=== PATIENT | male | born 2000 | race Caucasian/White ===

== ENCOUNTER 2024-03-15 17:34 | Emergency (ER) | payer BC ==
[2024-03-15] MEDS ORDERED: Acetaminophen 500 MG TAB ONE (17:48)
== END 2024-03-15 19:05 | disposition home or self-care (01) ==
LOC: ERS 17:34
DX: S70.11XA Contusion of right thigh, initial encounter (principal); S80.01XA Contusion of right knee, initial encounter; S00.81XA Abrasion of other part of head, initial encounter; S70.01XA Contusion of right hip, initial encounter; V29.99XA Rider (driver) (passenger) of other motorcycle injured in unspecified traffic accident, initial encounter
CPT/HCPCS: 70450; 71045; 72192; G0390

== ENCOUNTER 2025-03-24 10:03 | Outpatient (CLI) | payer BC | END 2025-03-24 10:04 | disposition home or self-care (01) | LOC: BICMRI 10:03 | PROVIDERS: ATTEND Student in an Organized Health Care Education/Training Program | DX: M47.816 Spondylosis without myelopathy or radiculopathy, lumbar region (principal); M51.369 Other intervertebral disc degeneration, lumbar region without mention of lumbar back pain or lower extremity pain | CPT/HCPCS: 72148 ==